=== PATIENT | male | born 1930 | race Caucasian/White ===

== ENCOUNTER 2019-05-20 01:57 | Inpatient (IN) | payer MEDICARE ==
[2019-05-20] MEDS ORDERED: Acetaminophen 650 MG Suppository ONE (02:12)
[2019-05-20 02:26] LABS: Actual Bicarbonate (HCO3a) 19.5 mEq/L (22-28); Analyzer IN Cardio ER; Base Excess (BEa) -3.3 mEq/L (-2.0 to +3.0); CO2 Tension 29.5 mmHg (35.0-45.0); Carboxyhemoglobin (COHb) 0.9 gm% (0.0-3.0); Hemoglobin (Hb) 14.8 g/dL (14.0-18.0); O2 Tension (PaO2) 79.3 mmHg (> 60.0); Potassium - ABG Lab 3.89 mmol/L (3.70-5.30); pH, Arterial 7.44 (7.35-7.45)
[2019-05-20] MEDS ORDERED: Furosemide 20 MG/2 ML VIAL ONE (02:34)
[2019-05-20] MEDS ORDERED: Piperacillin/Tazobactam 4.5 GM VIAL ONE (02:34)
[2019-05-20 02:43] LABS: ALT (SGPT) 16 U/L (8-55); AST (SGOT) 21 U/L (5-34); Albumin 4.8 g/dL (3.4-4.8); Alkaline Phosphatase 92 U/L (40-110); Anion Gap 17 mmol/L (10-20); BUN (Urea Nitrogen) 15 mg/dL (8.4-25.7); Bilirubin, Total 1.2 mg/dL (0.2-1.2); Calc. Creatinine Clearance 0 mL/min (70-130); Calcium 10.2 mg/dL (7.8-10.44); Carbon Dioxide 23 mmol/L (23-31); Chloride 100 mmol/L (98-107); Estimated GFR-MDRD 53; Globulin 2.8 g/dL (2.4-3.5); Glucose 273 mg/dL (83-110); Potassium 4.1 mmol/L (3.5-5.1); Protein, Total 7.6 g/dL (5.8-8.1); Sodium 136 mmol/L (136-145)
[2019-05-20 02:44] LABS: ALV-art Gradient 133.375 (0-20); Puncture Site L RADIAL
[2019-05-20 02:50] LABS: Band 12 % (5-11); Hemoglobin 14.3 g/dL (14.0-18.0); Lymphocytes 20 % (21-51); MDiff Complete? YES; Mean Corpuscular HGB CONC 33.2 g/dL (32.0-36.0); Mean Corpuscular Hemoglobin 30.2 pg (27.0-31.0); Mean Corpuscular Volume 91.1 fL (78.0-98.0); Mean Platelet Volume 8.8 fL (7.4-10.4); Monocytes 17 % (0-10); Neutrophil 51 % (42-75); Platelet Count 90 thou/uL (130-400); Platelet Morphology Comment Appears Decreased; Red Blood Cell (RBC) Count 4.73 mill/uL (4.70-6.10); White Blood Cell (WBC) Count 12.4 thou/uL (4.8-10.8)
[2019-05-20 03:38] LABS: Bacteria/HPF None Seen HPF (None Seen); Bilirubin Negative (Negative); Blood, Urine 1+ (Negative); Clarity Clear (Clear); Glucose, Urine (Dipstick) Greater than 1000 mg/dL (Negative); Leukocyte Negative Leu/uL (Negative); Nitrite Negative (Negative); Protein, Urine (Dipstick) 10 mg/dL (Neg-Trace); RBC/HPF 0-3 HPF (0-3); Squamous Epithelial 0-3 HPF (0-3); Urobilinogen Normal mg/dL (Less than 2); WBC/HPF 0-3 HPF (0-3)
[2019-05-20] MEDS ORDERED: Ondansetron ODT 4 MG TAB PO PRN (06:13)
[2019-05-20] MEDS ORDERED: Ondansetron PF 4 MG/2 ML Vial IVP PRN (06:13)
[2019-05-20] MEDS ORDERED: Acetaminophen 650 MG Suppository PR PRN ×2 (06:14→06:41)
[2019-05-20] MEDS ORDERED: Lactated Ringer's 1,000 ML IV SCH (06:15)
[2019-05-20 06:16] LABS: Lactic Acid 3.6 mmol/L (0.5-2.2)
[2019-05-20] MEDS ORDERED: Dextrose 50% Abboject 50 ML SYRINGE SLOW IVP PRN (06:36)
[2019-05-20] MEDS ORDERED: Dextrose 5% in Water 1,000 ML IV PRN (06:36)
[2019-05-20] MEDS ORDERED: SYSTANE 3.5 GM TUBE EA EYE PRN (06:39)
[2019-05-20] MEDS ORDERED: Acetaminophen 325 MG TAB PO PRN (06:41)
[2019-05-20 06:45] VITALS: BMI 31.4
[2019-05-20] MEDS ORDERED: Vancomycin HCl 1 GM in Premix Bag 1 BAG IVPB SCH (06:45)
--- NOTE | 2019-05-20 07:19 | HP ---
PRIMARY CARE PHYSICIAN: Makenna Sylvester. CHIEF COMPLAINT: Cough and fever of one day duration. HISTORY OF PRESENT ILLNESS: The patient is an 88-year-old male with Parkinson disease, diabetes mellitus type 2, hypertension and dementia, currently residing at [facility], presented to the emergency room by EMS with above complaints. The patient is currently on noninvasive positive-pressure ventilation. History is obtained from the spouse at the bedside. Over the last 24 to 48 hours, the patient has progressively worsening cough. He also had fever. He appeared lethargic, for which EMS was called. He was evaluated by home health care nurse yesterday. His lung examination was clear per home health nurse. The cough was productive of thick whitish phlegm. He also had respiratory distress on [id number] exertion. When EMS arrived, the patient was in significant distress requiring noninvasive positive pressure ventilation. His temperature by EMS was 103. In the emergency room, initial temperature was 103 rectal with respirations of 24, pulse rate of 112, with a blood pressure of 109/66, with O2 saturation of 96% on noninvasive positive-pressure ventilation. PAST MEDICAL HISTORY: 1. Parkinson disease. 2. Chronic thrombocytopenia followed by Hematology at [facility]. 3. Diabetes mellitus, type 2. 4. Dementia. 5. Hypertension. 6. Hyperlipidemia. 7. GERD. 8. History of skin cancer, status post excision. 9. Benign essential tremors. 10. Degenerative joint disease. PAST SURGICAL HISTORY: 1. Appendectomy. 2. Cataract extraction. 3. Colonoscopy. 4. Coronary stent placement by Dr. Tomlinson in 2016. 5. Foot surgery. 6. Hernia repair. 7. Knee arthroscopy. 8. Skin biopsy. 9. Skin cancer excision. 10. Thoracic laminectomy. 11. EGD. 12. Tonsillectomy. ALLERGIES: THE PATIENT IS ALLERGIC TO CEPHALEXIN, CODEINE, AND SULFA. ALL THESE 3 MEDICINES CAUSES NAUSEA. SOCIAL HISTORY: The patient currently resides at [facility]. There is no history of smoking, alcohol or drug use. The spouse is the decision maker. FAMILY HISTORY: Father with colon cancer. REVIEW OF SYSTEMS: Cannot be obtained from the patient due to current cognitive status. HOME MEDICATIONS: 1. Amlodipine 5 mg daily. 2. Azelastine nasal spray twice daily. 3. Brilinta 90 mg twice a day. 4. Carbidopa and levodopa 25/100 three times a day. 5. Aricept 10 mg q.p.m. 6. Enalapril 5 mg daily. 7. Nexium 40 mg daily. 8. Glimepiride 4 mg daily. 9. Levemir 48 units daily. 10. Lyrica 75 mg twice a day. 11. Namenda 5 mg daily. 12. Metformin 1000 mg daily. 13. Mirabegron one tablet daily. 14. Nystatin cream as needed. 15. Pioglitazone 30 mg daily. 16. Pravastatin 40 mg at bedtime. 17. Requip 0.25 mg 3 times a day. 18. Systane eye drops as directed. 19. Vascepa 2 g twice a day. 20. Multivitamin one tablet daily. PHYSICAL EXAMINATION: VITAL SIGNS: As discussed above. GENERAL: 88-year-old male, in respiratory distress on noninvasive positive-pressure ventilation. HEENT: Head, atraumatic and normocephalic. Sclerae anicteric. NECK: Supple. No JVD. No carotid bruit. LUNGS: Diffuse rhonchi with bibasilar rales. No significant wheezing. There is accessory muscle use. HEART: S1 and S2 present, tachycardic. No rubs or gallops. ABDOMEN: Soft and obese. Bowel sounds present. EXTREMITIES: 1 to 2+ edema in bilateral lower extremities. Peripheral vascular radial pulses palpable bilaterally. SKIN: Warm and dry. LYMPH NODES: No palpable lymph nodes in the neck. MUSCULOSKELETAL: No joint swelling or tenderness. LABORATORY FINDINGS: WBC 12.4 with 12% bandemia. Platelet of 90. ABG showed pH of 7.44 with pCO2 of 29.5, pO2 of 79.3, and bicarbonate 19.5. Chemistry showed sodium of 136, potassium of 4.1, chloride of 100, bicarb of 23, BUN of 15, and creatinine of 1.29. Lactic acid of 3.5. Troponin was negative. BNP 45. Urinalysis was negative for wbc or bacteria. Influenza screen was negative. Chest x-ray by my review showed increased bronchopulmonary markings in left base. EKG by my review showed sinus tachycardia without significant ST-T wave changes. IMPRESSION: 1. Acute hypoxic respiratory failure. 2. Severe sepsis secondary to pneumonia, suspected pneumococcal. Rule out aspiration. 3. Lactic acidosis secondary to sepsis. 4. Diabetes mellitus, type 2. 5. Chronic kidney disease, stage 3. 6. Chronic thrombocytopenia. 7. Parkinson disease. 8. Dementia. 9. Coronary artery disease, status post stent placement. 10. Gastroesophageal reflux disease. 11. Hypertension. 12. Hyperlipidemia. 13. Benign essential tremors. 14. Suspected sleep apnea. PLAN: The patient will be monitored in the intermediate care unit. We will continue noninvasive positive-pressure ventilation. We will continue vancomycin and Zosyn for now. We will consult Pulmonary, Dr. Santiago. We will check baseline cortisol level. Code status will be verified with the family. We will recheck chest x-ray in a.m. Echocardiogram will be obtained. Plan of care was discussed with the patient's spouse and the son at the bedside. They stated understanding. Job ID: [id number]
--- NOTE | 2019-05-20 07:50 | RAD ---
EXAM: Single view of the chest HISTORY: Difficulty breathing COMPARISON: None FINDINGS: Single view of the chest shows a normal sized cardiomediastinal silhouette. There is no lance dence of consolidation, mass, or pleural effusion. Degenerative changes are seen in the spine and shoulders. IMPRESSION: No evidence of acute cardiopulmonary disease
[2019-05-20] MEDS ORDERED: Vancomycin HCl 500 MG in Sodium Chloride 0.9% 100 ML IVPB SCH (08:00)
[2019-05-20] MEDS: Azithromycin 500 MG in Sodium Chloride 0.9% 250 ML 250 ML IVPB SCH (10:03)
[2019-05-20] MEDS: Piperacillin/Tazobactam 3.375 GM in Sodium Chloride 0.9% 100 ML IVPB SCH ×3 (10:03→20:46)
[2019-05-20] MEDS: Famotidine/PF 20 mg/2ml Vial SLOW IVP SCH ×2 (10:03→20:46)
[2019-05-20] MEDS: Saccharomyces boulardii 250 MG CAP PO SCH (10:04)
[2019-05-20] MEDS: TICAGRELOR 90 MG TABLET PO SCH ×2 (10:04→20:48)
[2019-05-20] MEDS: Senokot S 8.6-50 MG TAB PO SCH ×2 (10:04→20:48)
--- NOTE | 2019-05-20 11:59 | PDOC.HOSPP ---
- Subjective Encounter Date: 05/20/19 Encounter Time: 10:45 Subjective: pt's bedside, pt was on bipap this morning, he has dry cough, he is wheelchair bound, code status DNR confirmed - Objective Vital Signs & Weight: Vital Signs (12 hours) Temp Pulse Resp Pulse Ox 05/20/19 11:07 97.7 F 05/20/19 10:24 86 24 H 100 05/20/19 09:25 100 05/20/19 07:28 97.8 F 05/20/19 05:50 98.4 F Weight Weight 225 lb 1 oz Most Recent Monitor Data Heart Rate from ECG 82 NIBP 114/64 NIBP BP-Mean 80 Respiration from ECG 21 SpO2 98 Result Diagrams: 05/20/19 02:09 05/20/19 02:09 Additional Labs: Accuchecks 05/20/19 09:04 POC Glucose 280 H Radiology Reviewed by me: Yes (chest xray reviewed) EKG Reviewed by me: Yes (nsr) Hospitalist ROS - Review of Systems ROS unobtainable: due to mental status - Medication Medications: Active Medications Generic Name Dose Route Start Last Admin Trade Name Freq PRN Reason Stop Dose Admin Albuterol/Ipratropium 3 ml 05/20/19 10:30 05/20/19 10:24 Duoneb NEB 3 ml [id number] ARTURO Administration Famotidine 20 mg 05/20/19 09:00 05/20/19 10:03 Pepcid SLOW IVP 20 mg Q12HR ARTURO Administration Azithromycin 500 mg/ Sodium 250 mls @ 250 mls/hr 05/20/19 08:00 05/20/19 10: 03 Chloride IVPB 250 mls Q24HR ARTURO Administration Piperacillin Sod/Tazobactam 100 mls @ 200 mls/hr 05/20/19 09:00 05/20/19 10: 03 Sod 3.375 gm/ Sodium Chloride IVPB 100 mls Q6H ARTURO Administration Saccharomyces Boulardii 250 mg 05/20/19 09:00 05/20/19 10:04 Florastor PO 250 mg DAILY ARTURO Administration Senna/Docusate Sodium 1 tab 05/20/19 09:00 05/20/19 10:04 Senokot S PO 1 tab BID ARTURO Administration Sodium Chloride 10 ml 05/20/19 09:00 05/20/19 10:04 Flush - Normal Saline IVF 10 ml Q12HR ARTURO Administration Ticagrelor 90 mg 05/20/19 09:00 05/20/19 10:04 Brilinta PO 90 mg BID ARTURO Administration - Exam General Appearance: NAD, ill appearing Eye: PERRL, anicteric sclera ENT: normocephalic atraumatic, no oropharyngeal lesions Neck: supple, symmetric, no JVD, no thyromegaly Heart: RRR, no murmur, no gallops, no rubs, normal peripheral pulses Respiratory: no wheezes, no rales, no ronchi Gastrointestinal: soft, non-tender, non-distended, normal bowel sounds Extremities: no cyanosis, no clubbing, no edema Skin: normal turgor, no lesions Neurological: no focal deficits Musculoskeletal: normal tone, normal strength Psychiatric: lethargic Hosp A/P (1) Pneumonia Code(s): J18.9 - PNEUMONIA, UNSPECIFIED ORGANISM Status: Acute Qualifiers: Pneumonia type: aspiration pneumonia Laterality: unspecified laterality Lung location: unspecified part of lung (2) Sepsis with acute hypoxic respiratory failure Code(s): A41.9 - SEPSIS, UNSPECIFIED ORGANISM; R65.20 - SEVERE SEPSIS WITHOUT SEPTIC SHOCK; J96.01 - ACUTE RESPIRATORY FAILURE WITH HYPOXIA Status: Acute Qualifiers: Sepsis type: sepsis due to unspecified organism Severe sepsis shock status : without septic shock Qualified Code(s): A41.9 - Sepsis, unspecified organism ; R65.20 - Severe sepsis without septic shock; J96.01 - Acute respiratory failure with hypoxia (3) CAD (coronary artery disease) Code(s): I25.10 - ATHSCL HEART DISEASE OF [place] CORONARY ARTERY W/O ANG PCTRS Status: Chronic Qualifiers: Coronary Disease-Associated Artery/Lesion type: [place] artery [place] vs. transplanted heart: [place] heart Associated angina: without angina Qualified Code(s): I25.10 - Atherosclerotic heart disease of [place] coronary artery without angina pectoris (4) Hypertension Code(s): I10 - ESSENTIAL (PRIMARY) HYPERTENSION Status: Chronic Qualifiers: Hypertension type: essential hypertension Qualified Code(s): I10 - Essential (primary) hypertension (5) Dyslipidemia Code(s): E78.5 - HYPERLIPIDEMIA, UNSPECIFIED Status: Chronic (6) Thrombocytopenia Code(s): D69.6 - THROMBOCYTOPENIA, UNSPECIFIED Status: Chronic (7) GERD (gastroesophageal reflux disease) Code(s): K21.9 - GASTRO-ESOPHAGEAL REFLUX DISEASE WITHOUT ESOPHAGITIS Status: Chronic Qualifiers: Esophagitis presence: without esophagitis Qualified Code(s): K21.9 - Gastro -esophageal reflux disease without esophagitis (8) Dementia Code(s): F03.90 - UNSPECIFIED DEMENTIA WITHOUT BEHAVIORAL DISTURBANCE Status: Chronic Qualifiers: Dementia type: Parkinson's disease Dementia behavioral disturbance: without behavioral disturbance Qualified Code(s): G20 - Parkinson's disease; F02.80 - Dementia in other diseases classified elsewhere without behavioral disturbance (9) Physical deconditioning Code(s): R53.81 - OTHER MALAISE Status: Chronic (10) Lactic acidosis Code(s): E87.2 - ACIDOSIS Status: Resolved (11) Diabetes type 2, controlled Code(s): E11.9 - TYPE 2 DIABETES MELLITUS WITHOUT COMPLICATIONS Status: Chronic Qualifiers: Diabetes mellitus moth exterminator insulin use: with moth exterminator use Chronic kidney disease stage: stage 3 (moderate) (12) CKD (chronic kidney disease) stage 3, GFR 30-59 ml/min Code(s): N18.3 - CHRONIC KIDNEY DISEASE, STAGE 3 (MODERATE) Status: Chronic (13) Essential tremor Code(s): G25.0 - ESSENTIAL TREMOR Status: Chronic (14) Obesity (BMI 30.0-34.9) Code(s): E66.9 - OBESITY, UNSPECIFIED Status: Chronic (15) Parkinson disease Code(s): G20 - PARKINSON'S DISEASE Status: Chronic - Plan old records reviewed/req, plan discussed w/ family, continue antibiotics, respiratory therapy 05/20/19 will try to wean off bipap to see how he does continue vancomycin and zosyn and azithromycin follow culture medication reviewed as above symptomatic treatment home medication reconciled discussed with
[2019-05-20] MEDS ORDERED: Nystatin Cream 30 GM TUBE TOP PRN (12:00)
[2019-05-20] MEDS ORDERED: Polyethylene Glycol OPTH DROP 15 ML BOT EA EYE PRN (12:43)
[2019-05-20] MEDS: Carbidopa/Levodopa 25-100 mg Tablet PO SCH ×2 (16:25→20:46)
[2019-05-20] MEDS: rOPINIRole HCl 0.25 MG TAB PO SCH ×2 (16:25→20:48)
[2019-05-20] MEDS: Atorvastatin Calcium 10 MG TAB PO SCH (20:45)
[2019-05-20] MEDS: Azelastine 137 MCG/Spray 30 ML NS SCH (20:45)
[2019-05-20] MEDS: Donepezil HCl 5 MG TAB PO SCH (20:46)
[2019-05-20] MEDS: Pregabalin 75 MG CAP PO SCH (20:47)
[2019-05-20] MEDS: Insulin Regular 300 UNITS/3 ML VIAL SC PRN (21:46)
[2019-05-21] MEDS: Insulin Regular 300 UNITS/3 ML VIAL SC PRN ×4 (00:18→21:28)
--- NOTE | 2019-05-21 02:45 | CON ---
DATE OF CONSULTATION: 05/20/2019 HISTORY OF PRESENT ILLNESS: Mr. Knight is an 88-year-old male, with advanced Parkinson's and dementia. He presented with respiratory distress. I was consulted because of his presence in the intermediate care unit. PAST MEDICAL HISTORY: Remarkable for diabetes, hypertension, history of swallowing dysfunction. He has gone through speech pathology in the past, but his family says that he just got tired of doing the speech and swallowing exercises. He spends majority of his time in bed or reclining chair. He is febrile on admission. PAST MEDICAL HISTORY: Otherwise remarkable for thrombocytopenia, lipid disorder , reflux disease, skin cancer, appendectomy, cataract surgery, coronary stenting, foot surgery, herniorrhaphy, skin cancer excision, laminectomy, EGD and tonsillectomy. ALLERGIES: HE IS REPORTEDLY ALLERGIC TO CEPHALOSPORINS, CODEINE AND SULFA, MAINLY IT IS NAUSEA. SOCIAL HISTORY: He lives at [facility]. His lives in an assisted living in [facility]. FAMILY HISTORY: Not obtained. REVIEW OF SYSTEMS: 10 point review of system completed, not obtainable. MEDICATIONS: Twenty, these have been reviewed. PHYSICAL EXAMINATION: GENERAL: He is in no distress. VITAL SIGNS: Heart rate is in 80s, respiratory rate is 20, oximetry is 98% on 2 L, blood pressure is 111/63. HEAD AND NECK: He keeps his eyes closed. He will not cooperate with an exam. He has no cervical lymphadenopathy. LUNGS: Remarkable for diffuse rhonchi. HEART: Regular rhythm. S1, S2 are normal. ABDOMEN: Soft and nontender. EXTREMITIES: Without clubbing, cyanosis, or edema. NEUROLOGIC: Could not be tested. IMPRESSION: 1. Advanced dementia with Parkinson's disease. Swallowing dysfunction with retained secretions accounting for his admission. He has no obvious alveolar infiltrates on his chest radiograph. 2. I think he could be transferred out of the intermediate Care Unit for supportive care and back to the alf. I have discussed palliative care with his and his daughter in-law. I also discussed the option of not coming back to the hospital and just managing him conservatively at the alf in the future. TIME SPENT: This is a 70 minute consult, with greater than 50% of the time was spent on the unit coordinating care. Job ID: [id number] MTDD
[2019-05-21] MEDS: Piperacillin/Tazobactam 3.375 GM in Sodium Chloride 0.9% 100 ML IVPB SCH ×4 (03:29→21:06)
[2019-05-21 04:57] LABS: ALT (SGPT) 8 U/L (8-55); AST (SGOT) 16 U/L (5-34); Albumin 3.7 g/dL (3.4-4.8); Alkaline Phosphatase 55 U/L (40-110); Anion Gap 14 mmol/L (10-20); BUN (Urea Nitrogen) 15 mg/dL (8.4-25.7); Bilirubin, Total 0.9 mg/dL (0.2-1.2); Calc. Creatinine Clearance 61 mL/min (70-130); Calcium 8.8 mg/dL (7.8-10.44); Carbon Dioxide 21 mmol/L (23-31); Chloride 103 mmol/L (98-107); Estimated GFR-MDRD 56; Globulin 2.2 g/dL (2.4-3.5); Glucose 265 mg/dL (83-110); Magnesium 1.4 mg/dL (1.6-2.6); Potassium 3.3 mmol/L (3.5-5.1); Protein, Total 5.9 g/dL (5.8-8.1); Sodium 135 mmol/L (136-145)
[2019-05-21 05:24] LABS: Band 8 % (5-11); Hemoglobin 11.8 g/dL (14.0-18.0); Lymphocytes 13 % (21-51); MDiff Complete? YES; Mean Corpuscular HGB CONC 34.2 g/dL (32.0-36.0); Mean Corpuscular Hemoglobin 32.1 pg (27.0-31.0); Mean Corpuscular Volume 94.1 fL (78.0-98.0); Mean Platelet Volume 8.7 fL (7.4-10.4); Monocytes 20 % (0-10); Neutrophil 59 % (42-75); Platelet Count 73 thou/uL (130-400); Platelet Morphology Comment Appears Decreased; RBC Distribution Width 14.3 % (11.5-14.5); Red Blood Cell (RBC) Count 3.67 mill/uL (4.70-6.10); White Blood Cell (WBC) Count 9.5 thou/uL (4.8-10.8)
[2019-05-21] MEDS ORDERED: Vancomycin HCl 1.5 GM in Sodium Chloride 0.9% 250 ML 300 ML IVPB SCH (08:00)
--- NOTE | 2019-05-21 08:38 | RAD ---
Portable frontal chest radiograph: 05/21/2019 COMPARISON: 05/20/2019 HISTORY: Shortness of breath FINDINGS: Mild increased density noted in the medial left lung base. This may represent volume loss o r mild infiltrate. Right lung is clear. No pneumothorax seen. IMPRESSION: Mild nonspecific increased density in the medial left lung base. This may signify volume loss. Follow-up PA and lateral imaging of the chest suggested.
[2019-05-21] MEDS ORDERED: Furosemide 40 MG/4 ML VIAL SLOW IVP SCH (09:15)
[2019-05-21] MEDS: TICAGRELOR 90 MG TABLET PO SCH ×3 (09:42→21:45)
[2019-05-21] MEDS: rOPINIRole HCl 0.25 MG TAB PO SCH ×3 (09:42→21:03)
[2019-05-21] MEDS: Pioglitazone HCl 15 MG TAB PO SCH (09:42)
[2019-05-21] MEDS: Famotidine/PF 20 mg/2ml Vial SLOW IVP SCH ×2 (09:42→21:07)
[2019-05-21] MEDS: Pregabalin 75 MG CAP PO SCH ×2 (09:43→21:03)
[2019-05-21] MEDS: Senokot S 8.6-50 MG TAB PO SCH ×2 (09:43→21:05)
[2019-05-21] MEDS: metFORMIN 500 MG TAB PO SCH (09:43)
[2019-05-21] MEDS: Lisinopril 5 MG TAB PO SCH (09:43)
[2019-05-21] MEDS: Amlodipine 5 MG TAB PO SCH (09:43)
[2019-05-21] MEDS: Multivitamin W/ Minerals 1 TAB PO SCH (09:43)
[2019-05-21] MEDS: Carbidopa/Levodopa 25-100 mg Tablet PO SCH ×3 (09:43→22:40)
[2019-05-21] MEDS: Saccharomyces boulardii 250 MG CAP PO SCH (09:43)
[2019-05-21] MEDS: Azelastine 137 MCG/Spray 30 ML NS SCH ×2 (09:45→22:41)
[2019-05-21] MEDS: Azithromycin 500 MG in Sodium Chloride 0.9% 250 ML 250 ML IVPB SCH (09:48)
--- NOTE | 2019-05-21 10:13 | PDOC.HOSPP ---
- Subjective Encounter Date: 05/21/19 Encounter Time: 09:45 Subjective: Patient seen and examined. No new complaints. No overnight events he is on room air family is worried about leg edema - Objective Vital Signs & Weight: Vital Signs (12 hours) Temp Pulse Resp Pulse Ox 05/21/19 09:43 88 05/21/19 07:23 98.5 F 05/21/19 07:15 88 20 98 05/21/19 03:38 98.1 F 05/21/19 02:33 88 20 98 05/20/19 23:22 98.3 F Weight Weight 226 lb 6 oz Most Recent Monitor Data Heart Rate from ECG 90 NIBP 137/70 NIBP BP-Mean 92 Respiration from ECG 9 SpO2 98 I&O: 05/20/19 05/21/19 05/22/19 06:59 06:59 06:59 Intake Total 300 Balance 300 Result Diagrams: 05/21/19 04:04 05/21/19 04:04 Additional Labs: Accuchecks 05/21/19 05/21/19 05/20/19 08:02 04:48 23:36 POC Glucose 242 H 273 H 266 H 05/20/19 05/20/19 05/20/19 19:52 16:31 12:32 POC Glucose 248 H 243 H 251 H Radiology Reviewed by me: Yes (chest xray reviewed) EKG Reviewed by me: Yes (nsr) Hospitalist ROS - Review of Systems ROS unobtainable: due to mental status - Medication Medications: Active Medications Generic Name Dose Route Start Last Admin Trade Name Freq PRN Reason Stop Dose Admin Albuterol/Ipratropium 3 ml 05/20/19 10:30 05/21/19 07:15 Duoneb NEB 3 ml [id number] ARTURO Administration Amlodipine Besylate 5 mg 05/21/19 09:00 05/21/19 09:43 Norvasc PO 5 mg DAILY ARTURO Administration Atorvastatin Calcium 10 mg 05/20/19 21:00 05/20/19 20:45 Lipitor PO 10 mg HS ARTURO Administration Azelastine HCl 0 ml 05/20/19 21:00 05/21/19 09:45 Azelastine NS 1 spray BID ARTURO Administration Carbidopa/Levodopa 1 tab 05/20/19 15:00 05/21/19 09:43 Sinemet 25-100 PO 1 tab TID ARTURO Administration Donepezil HCl 5 mg 05/20/19 21:00 05/20/19 20:46 Aricept PO 5 mg HS ARTURO Administration Famotidine 20 mg 05/20/19 09:00 05/21/19 09:42 Pepcid SLOW IVP 20 mg Q12HR ARTURO Administration Furosemide 40 mg 05/21/19 09:15 05/21/19 09:41 Lasix SLOW IVP 05/21/19 11:00 40 mg 0915 ARTURO Administration Azithromycin 500 mg/ Sodium 250 mls @ 250 mls/hr 05/20/19 08:00 05/21/19 09: 48 Chloride IVPB 250 mls Q24HR ARTURO Administration Piperacillin Sod/Tazobactam 100 mls @ 200 mls/hr 05/20/19 09:00 05/21/19 09: 48 Sod 3.375 gm/ Sodium Chloride IVPB 100 mls Q6H ARTURO Administration Vancomycin HCl 1.5 gm/ Sodium 300 mls @ 200 mls/hr 05/21/19 08:00 05/21/19 09 :44 Chloride IVPB 300 mls 0800 ARTURO Administration Insulin Human Regular 0 units 05/20/19 06:36 05/21/19 05:19 Humulin R SC 6 units .MODERATE SLIDING SC PRN Administration Moderate Correctional Scale Insulin Human Regular 0 units 05/20/19 21:36 05/21/19 00:18 Humulin R SC 3 units .BEDTIME SLIDING SC PRN Administration BEDTIME SLIDING SCALE Protocol Iron/Minerals/Multivitamins 1 tab 05/21/19 09:00 05/21/19 09:43 Theragran M PO 1 tab DAILY ARTURO Administration Lisinopril 5 mg 05/21/19 09:00 05/21/19 09:43 Zestril PO 5 mg DAILY ARTURO Administration Memantine 5 mg 05/20/19 21:00 05/20/19 20:46 Namenda PO 5 mg HS ARTURO Administration Metformin HCl 1,000 mg 05/21/19 08:00 05/21/19 09:43 Glucophage PO 1,000 mg QAM-WM ARTURO Administration Mirabegron 50 mg 05/21/19 09:00 05/21/19 09:42 Myrbetriq Er PO 50 mg DAILY ARTURO Administration Pioglitazone HCl 30 mg 05/21/19 09:00 05/21/19 09:42 Actos PO 30 mg DAILY ARTURO Administration Pregabalin 75 mg 05/20/19 21:00 05/21/19 09:43 Lyrica PO 75 mg BID ARTURO Administration Ropinirole HCl 0.25 mg 05/20/19 15:00 05/21/19 09:42 Requip PO 0.25 mg TID ARTURO Administration Saccharomyces Boulardii 250 mg 05/20/19 09:00 05/21/19 09:43 Florastor PO 250 mg DAILY ARTURO Administration Senna/Docusate Sodium 1 tab 05/20/19 09:00 05/21/19 09:43 Senokot S PO 1 tab BID ARTURO Administration Sodium Chloride 10 ml 05/20/19 09:00 05/21/19 09:48 Flush - Normal Saline IVF 10 ml Q12HR ARTURO Administration Ticagrelor 90 mg 05/20/19 09:00 05/21/19 09:42 Brilinta PO 90 mg BID ARTURO Administration - Exam General Appearance: NAD Eye: PERRL, anicteric sclera ENT: normocephalic atraumatic, no oropharyngeal lesions, dry oral mucosa Neck: supple, symmetric, no JVD Heart: RRR, no murmur, no gallops, no rubs Respiratory: CTAB, no wheezes, no rales, no ronchi Gastrointestinal: soft, non-tender, non-distended, normal bowel sounds Extremities: no cyanosis, 1+ LE edema Skin: normal turgor, no lesions Neurological: no focal deficits Musculoskeletal: normal tone Psychiatric: not oriented Hosp A/P (1) Pneumonia Code(s): J18.9 - PNEUMONIA, UNSPECIFIED ORGANISM Status: Acute Qualifiers: Pneumonia type: aspiration pneumonia Laterality: unspecified laterality Lung location: unspecified part of lung (2) Sepsis with acute hypoxic respiratory failure Code(s): A41.9 - SEPSIS, UNSPECIFIED ORGANISM; R65.20 - SEVERE SEPSIS WITHOUT SEPTIC SHOCK; J96.01 - ACUTE RESPIRATORY FAILURE WITH HYPOXIA Status: Resolved Qualifiers: Sepsis type: sepsis due to unspecified organism Severe sepsis shock status : without septic shock Qualified Code(s): A41.9 - Sepsis, unspecified organism ; R65.20 - Severe sepsis without septic shock; J96.01 - Acute respiratory failure with hypoxia (3) CAD (coronary artery disease) Code(s): I25.10 - ATHSCL HEART DISEASE OF [place] CORONARY ARTERY W/O ANG PCTRS Status: Chronic Qualifiers: Coronary Disease-Associated Artery/Lesion type: [place] artery [place] vs. transplanted heart: [place] heart Associated angina: without angina Qualified Code(s): I25.10 - Atherosclerotic heart disease of [place] coronary artery without angina pectoris (4) Hypertension Code(s): I10 - ESSENTIAL (PRIMARY) HYPERTENSION Status: Chronic Qualifiers: Hypertension type: essential hypertension Qualified Code(s): I10 - Essential (primary) hypertension (5) Dyslipidemia Code(s): E78.5 - HYPERLIPIDEMIA, UNSPECIFIED Status: Chronic (6) Thrombocytopenia Code(s): D69.6 - THROMBOCYTOPENIA, UNSPECIFIED Status: Chronic (7) GERD (gastroesophageal reflux disease) Code(s): K21.9 - GASTRO-ESOPHAGEAL REFLUX DISEASE WITHOUT ESOPHAGITIS Status: Chronic Qualifiers: Esophagitis presence: without esophagitis Qualified Code(s): K21.9 - Gastro -esophageal reflux disease without esophagitis (8) Dementia Code(s): F03.90 - UNSPECIFIED DEMENTIA WITHOUT BEHAVIORAL DISTURBANCE Status: Chronic Qualifiers: Dementia type: Parkinson's disease Dementia behavioral disturbance: without behavioral disturbance Qualified Code(s): G20 - Parkinson's disease; F02.80 - Dementia in other diseases classified elsewhere without behavioral disturbance (9) Physical deconditioning Code(s): R53.81 - OTHER MALAISE Status: Chronic (10) Lactic acidosis Code(s): E87.2 - ACIDOSIS Status: Resolved (11) Diabetes type 2, controlled Code(s): E11.9 - TYPE 2 DIABETES MELLITUS WITHOUT COMPLICATIONS Status: Chronic Qualifiers: Diabetes mellitus exterminator termite insulin use: with exterminator termite use Chronic kidney disease stage: stage 3 (moderate) (12) CKD (chronic kidney disease) stage 3, GFR 30-59 ml/min Code(s): N18.3 - CHRONIC KIDNEY DISEASE, STAGE 3 (MODERATE) Status: Chronic (13) Essential tremor Code(s): G25.0 - ESSENTIAL TREMOR Status: Chronic (14) Obesity (BMI 30.0-34.9) Code(s): E66.9 - OBESITY, UNSPECIFIED Status: Chronic (15) Parkinson disease Code(s): G20 - PARKINSON'S DISEASE Status: Chronic - Plan old records reviewed/req, plan discussed w/ family, continue antibiotics, respiratory therapy 05/20/19 will try to wean off bipap to see how he does continue vancomycin and zosyn and azithromycin follow culture medication reviewed as above symptomatic treatment home medication reconciled discussed with 05/21/19 transfer to medical floor continue one day antibiotics give dose of lasix expecting discharge soon pulmonary recommendation appreciated discussed with and family
--- NOTE | 2019-05-21 20:56 | PRG ---
DATE OF SERVICE: 05/21/2019 SUBJECTIVE: Mr. Knight has made 100% improvement compared to yesterday. He was sitting up, being fed when I saw him this morning. OBJECTIVE: VITAL SIGNS: He is afebrile, heart rate is 92, respiratory rate 17, oximetry is 95% to 99%, blood pressure 137/72. LUNGS: Clear. HEART: Regular rhythm. ABDOMEN: Soft. LABORATORY DATA: White count 9.5, hemoglobin 11.8, platelets 73,000. Sodium 135, potassium 3.3, chloride 103, bicarb 21, BUN 51, creatinine 1.23. IMPRESSION: 1. Respiratory failure secondary to advanced parkinsonism with retained secretions and likely aspiration. Today's chest radiograph suggestive of atelectasis of the left base. 2. Stable to move out of the intermediate care unit. I will stop the azithromycin as this is likely to be an atypical organism infection. 3. His Zosyn could be switched to Augmentin tomorrow if he continues to consistently swallow food. 4. Vancomycin can be discontinued as well as this is unlikely to be a methicillin-resistant Staphylococcus aureus infection. Job ID: [id number]
[2019-05-21] MEDS: Atorvastatin Calcium 10 MG TAB PO SCH (21:05)
[2019-05-21] MEDS: Donepezil HCl 5 MG TAB PO SCH (21:05)
[2019-05-22] MEDS: Piperacillin/Tazobactam 3.375 GM in Sodium Chloride 0.9% 100 ML IVPB SCH (03:26)
[2019-05-22] MEDS: Insulin Regular 300 UNITS/3 ML VIAL SC PRN ×3 (03:35→17:20)
[2019-05-22 06:49] LABS: ALT (SGPT) 8 U/L (8-55); AST (SGOT) 17 U/L (5-34); Alkaline Phosphatase 60 U/L (40-110); Anion Gap 13 mmol/L (10-20); BUN (Urea Nitrogen) 16 mg/dL (8.4-25.7); Bilirubin, Total 0.8 mg/dL (0.2-1.2); Calc. Creatinine Clearance 56 mL/min (70-130); Calcium 9.1 mg/dL (7.8-10.44); Carbon Dioxide 25 mmol/L (23-31); Chloride 101 mmol/L (98-107); Estimated GFR-MDRD 50; Globulin 2.4 g/dL (2.4-3.5); Glucose 292 mg/dL (83-110); Potassium 3.2 mmol/L (3.5-5.1); Protein, Total 6.4 g/dL (5.8-8.1); Sodium 136 mmol/L (136-145)
[2019-05-22 07:24] LABS: Band 5 % (5-11); Hemoglobin 11.7 g/dL (14.0-18.0); Lymphocytes 30 % (21-51); MDiff Complete? YES; Mean Corpuscular Hemoglobin 31.4 pg (27.0-31.0); Mean Corpuscular Volume 92.2 fL (78.0-98.0); Mean Platelet Volume 8.8 fL (7.4-10.4); Monocytes 21 % (0-10); Neutrophil 44 % (42-75); Nucleated RBC 1 % (0); Platelet Count 77 thou/uL (130-400); Platelet Morphology Comment Appears Decreased; Polychromasia SLIGHT = 2-3 cells (100X) (0-2/hpf); RBC Distribution Width 13.8 % (11.5-14.5); Red Blood Cell (RBC) Count 3.74 mill/uL (4.70-6.10); White Blood Cell (WBC) Count 7.8 thou/uL (4.8-10.8)
[2019-05-22 07:28] LABS: Vancomycin, Trough 8.9 ug/mL
[2019-05-22] MEDS: metFORMIN 500 MG TAB PO SCH (09:38)
[2019-05-22] MEDS: Carbidopa/Levodopa 25-100 mg Tablet PO SCH ×3 (09:39→22:02)
[2019-05-22] MEDS: rOPINIRole HCl 0.25 MG TAB PO SCH ×3 (09:47→21:28)
[2019-05-22] MEDS: Lisinopril 5 MG TAB PO SCH (09:47)
[2019-05-22] MEDS: Senokot S 8.6-50 MG TAB PO SCH ×2 (09:47→21:23)
[2019-05-22] MEDS: Amlodipine 5 MG TAB PO SCH (09:47)
[2019-05-22] MEDS: Pregabalin 75 MG CAP PO SCH ×2 (09:48→21:23)
[2019-05-22] MEDS: Multivitamin W/ Minerals 1 TAB PO SCH (09:49)
[2019-05-22] MEDS: Saccharomyces boulardii 250 MG CAP PO SCH (09:49)
[2019-05-22] MEDS: Famotidine/PF 20 mg/2ml Vial SLOW IVP SCH ×2 (09:50→21:27)
[2019-05-22] MEDS: TICAGRELOR 90 MG TABLET PO SCH ×2 (09:51→21:45)
[2019-05-22] MEDS: Amoxicillin/Potassium Clav 875 MG TAB PO SCH ×2 (09:54→21:23)
[2019-05-22] MEDS: Azelastine 137 MCG/Spray 30 ML NS SCH ×2 (09:58→21:25)
[2019-05-22] MEDS: Pioglitazone HCl 15 MG TAB PO SCH (10:13)
--- NOTE | 2019-05-22 12:44 | PDOC.HOSPP ---
- Subjective Encounter Date: 05/22/19 Encounter Time: 10:00 Subjective: Patient seen and examined. No new complaints. No overnight events - Objective Vital Signs & Weight: Vital Signs (12 hours) Temp Pulse Resp BP BP Pulse Ox 05/22/19 12:00 98.6 F 89 20 146/84 H 94 L 05/22/19 10:38 81 18 93 L 05/22/19 09:47 89 138/75 05/22/19 08:00 98.4 F 89 20 138/75 92 L 05/22/19 07:27 86 16 98 05/22/19 05:00 98.4 F 89 18 131/81 96 05/22/19 03:01 88 20 94 L Weight Weight 226 lb 4 oz Most Recent Monitor Data Heart Rate from ECG 90 NIBP 143/71 NIBP BP-Mean 95 Respiration from ECG 9 SpO2 98 I&O: 05/21/19 05/22/19 05/23/19 06:59 06:59 06:59 Intake Total 300 Balance 300 Result Diagrams: 05/22/19 06:10 05/22/19 06:10 Additional Labs: Accuchecks 05/22/19 05/21/19 05/21/19 03:35 20:30 16:06 POC Glucose 282 H 317 H 337 H Hospitalist ROS - Review of Systems ROS unobtainable: due to mental status - Medication Medications: Active Medications Generic Name Dose Route Start Last Admin Trade Name Freq PRN Reason Stop Dose Admin Acetaminophen 650 mg 05/20/19 06:41 05/22/19 03:23 Tylenol PO 650 mg Q4H PRN Administration Headache/Fever/Mild Pain (1-3) Albuterol/Ipratropium 3 ml 05/20/19 10:30 05/22/19 10:38 Duoneb NEB 3 ml [id number] ARTURO Administration Amlodipine Besylate 5 mg 05/21/19 09:00 05/22/19 09:47 Norvasc PO 5 mg DAILY ARTURO Administration Amoxicillin/Clavulanate Potassium 875 mg 05/22/19 09:00 05/22/19 09:54 Augmentin PO 875 mg Q12HR ARTURO Administration Atorvastatin Calcium 10 mg 05/20/19 21:00 05/21/19 21:05 Lipitor PO 10 mg HS ARTURO Administration Azelastine HCl 0 ml 05/20/19 21:00 05/22/19 09:58 Azelastine NS 1 spray BID ARTURO Administration Carbidopa/Levodopa 1 tab 05/20/19 15:00 05/22/19 09:39 Sinemet 25-100 PO 1 tab TID ARTURO Administration Donepezil HCl 5 mg 05/20/19 21:00 05/21/19 21:05 Aricept PO 5 mg HS ARTURO Administration Famotidine 20 mg 05/20/19 09:00 05/22/19 09:50 Pepcid SLOW IVP 20 mg Q12HR ARTURO Administration Insulin Human Regular 0 units 05/20/19 06:36 05/22/19 12:36 Humulin R SC 8 units .MODERATE SLIDING SC PRN Administration Moderate Correctional Scale Insulin Human Regular 0 units 05/20/19 21:36 05/22/19 03:35 Humulin R SC 3 units .BEDTIME SLIDING SC PRN Administration BEDTIME SLIDING SCALE Protocol Iron/Minerals/Multivitamins 1 tab 05/21/19 09:00 05/22/19 09:49 Theragran M PO 1 tab DAILY ARTURO Administration Lisinopril 5 mg 05/21/19 09:00 05/22/19 09:47 Zestril PO 5 mg DAILY ARTURO Administration Memantine 5 mg 05/20/19 21:00 05/21/19 21:05 Namenda PO 5 mg HS ARTURO Administration Metformin HCl 1,000 mg 05/21/19 08:00 05/22/19 09:38 Glucophage PO 1,000 mg QAM-WM ARTURO Administration Mirabegron 50 mg 05/21/19 09:00 05/22/19 09:54 Myrbetriq Er PO 50 mg DAILY ARTURO Administration Pioglitazone HCl 30 mg 05/21/19 09:00 05/22/19 10:13 Actos PO 30 mg DAILY ARTURO Administration Pregabalin 75 mg 05/20/19 21:00 05/22/19 09:48 Lyrica PO 75 mg BID ARTURO Administration Ropinirole HCl 0.25 mg 05/20/19 15:00 05/22/19 09:47 Requip PO 0.25 mg TID ARTURO Administration Saccharomyces Boulardii 250 mg 05/20/19 09:00 05/22/19 09:49 Florastor PO 250 mg DAILY ARTURO Administration Senna/Docusate Sodium 1 tab 05/20/19 09:00 05/22/19 09:47 Senokot S PO 1 tab BID ARTURO Administration Sodium Chloride 10 ml 05/20/19 09:00 05/22/19 09:53 Flush - Normal Saline IVF 10 ml Q12HR ARTURO Administration Ticagrelor 90 mg 05/20/19 09:00 05/22/19 09:51 Brilinta PO 90 mg BID ARTURO Administration - Exam General Appearance: NAD, awake alert Eye: PERRL, anicteric sclera ENT: normocephalic atraumatic, no oropharyngeal lesions Neck: supple, symmetric, no JVD, no thyromegaly Heart: RRR, no murmur, no gallops, no rubs Respiratory: CTAB, no wheezes, no rales, no ronchi Gastrointestinal: soft, non-tender, non-distended Extremities: no cyanosis, no clubbing Skin: normal turgor, no lesions Neurological: no focal deficits Musculoskeletal: normal tone, normal strength Psychiatric: normal affect, normal behavior Hosp A/P (1) Pneumonia Code(s): J18.9 - PNEUMONIA, UNSPECIFIED ORGANISM Status: Acute Qualifiers: Pneumonia type: aspiration pneumonia Laterality: unspecified laterality Lung location: unspecified part of lung (2) Sepsis with acute hypoxic respiratory failure Code(s): A41.9 - SEPSIS, UNSPECIFIED ORGANISM; R65.20 - SEVERE SEPSIS WITHOUT SEPTIC SHOCK; J96.01 - ACUTE RESPIRATORY FAILURE WITH HYPOXIA Status: Resolved Qualifiers: Sepsis type: sepsis due to unspecified organism Severe sepsis shock status : without septic shock Qualified Code(s): A41.9 - Sepsis, unspecified organism ; R65.20 - Severe sepsis without septic shock; J96.01 - Acute respiratory failure with hypoxia (3) CAD (coronary artery disease) Code(s): I25.10 - ATHSCL HEART DISEASE OF [place] CORONARY ARTERY W/O ANG PCTRS Status: Chronic Qualifiers: Coronary Disease-Associated Artery/Lesion type: [place] artery [place] vs. transplanted heart: [place] heart Associated angina: without angina Qualified Code(s): I25.10 - Atherosclerotic heart disease of [place] coronary artery without angina pectoris (4) Hypertension Code(s): I10 - ESSENTIAL (PRIMARY) HYPERTENSION Status: Chronic Qualifiers: Hypertension type: essential hypertension Qualified Code(s): I10 - Essential (primary) hypertension (5) Dyslipidemia Code(s): E78.5 - HYPERLIPIDEMIA, UNSPECIFIED Status: Chronic (6) Thrombocytopenia Code(s): D69.6 - THROMBOCYTOPENIA, UNSPECIFIED Status: Chronic (7) GERD (gastroesophageal reflux disease) Code(s): K21.9 - GASTRO-ESOPHAGEAL REFLUX DISEASE WITHOUT ESOPHAGITIS Status: Chronic Qualifiers: Esophagitis presence: without esophagitis Qualified Code(s): K21.9 - Gastro -esophageal reflux disease without esophagitis (8) Dementia Code(s): F03.90 - UNSPECIFIED DEMENTIA WITHOUT BEHAVIORAL DISTURBANCE Status: Chronic Qualifiers: Dementia type: Parkinson's disease Dementia behavioral disturbance: without behavioral disturbance Qualified Code(s): G20 - Parkinson's disease; F02.80 - Dementia in other diseases classified elsewhere without behavioral disturbance (9) Physical deconditioning Code(s): R53.81 - OTHER MALAISE Status: Chronic (10) Lactic acidosis Code(s): E87.2 - ACIDOSIS Status: Resolved (11) Diabetes type 2, controlled Code(s): E11.9 - TYPE 2 DIABETES MELLITUS WITHOUT COMPLICATIONS Status: Chronic Qualifiers: Diabetes mellitus intermediate insulin use: with intermediate use Chronic kidney disease stage: stage 3 (moderate) (12) CKD (chronic kidney disease) stage 3, GFR 30-59 ml/min Code(s): N18.3 - CHRONIC KIDNEY DISEASE, STAGE 3 (MODERATE) Status: Chronic (13) Essential tremor Code(s): G25.0 - ESSENTIAL TREMOR Status: Chronic (14) Obesity (BMI 30.0-34.9) Code(s): E66.9 - OBESITY, UNSPECIFIED Status: Chronic (15) Parkinson disease Code(s): G20 - PARKINSON'S DISEASE Status: Chronic - Plan old records reviewed/req, plan discussed w/ family, continue antibiotics, PT/OT , social media marketing analyst, respiratory therapy 05/20/19 will try to wean off bipap to see how he does continue vancomycin and zosyn and azithromycin follow culture medication reviewed as above symptomatic treatment home medication reconciled discussed with 05/21/19 transfer to medical floor continue one day antibiotics give dose of lasix expecting discharge soon pulmonary recommendation appreciated discussed with and family 05/22/19 will change to augmentin today medication reviewed as above symptomatic treatment [facility] to [facility]
[2019-05-22] MEDS ORDERED: INSULIN DETEMIR 48 UNIT SQ SCH (21:00)
[2019-05-22] MEDS: Atorvastatin Calcium 10 MG TAB PO SCH (21:23)
[2019-05-22] MEDS: Donepezil HCl 5 MG TAB PO SCH (21:24)
[2019-05-22] MEDS: Insulin Glargine 48 UNITS in Pre-Filled Syringe 1 EACH SC SCH (21:33)
[2019-05-23] MEDS: Azelastine 137 MCG/Spray 30 ML NS SCH ×2 (07:42→21:50)
[2019-05-23] MEDS: Famotidine/PF 20 mg/2ml Vial SLOW IVP SCH ×2 (07:43→20:58)
[2019-05-23] MEDS: Multivitamin W/ Minerals 1 TAB PO SCH (07:43)
[2019-05-23] MEDS: metFORMIN 500 MG TAB PO SCH (07:43)
[2019-05-23] MEDS: rOPINIRole HCl 0.25 MG TAB PO SCH ×3 (07:43→20:58)
[2019-05-23] MEDS: Glimepiride 4 MG TAB PO SCH (07:44)
[2019-05-23] MEDS: Pregabalin 75 MG CAP PO SCH ×2 (07:44→20:59)
[2019-05-23] MEDS: Amoxicillin/Potassium Clav 875 MG TAB PO SCH ×2 (07:44→20:58)
[2019-05-23] MEDS: Saccharomyces boulardii 250 MG CAP PO SCH (07:44)
[2019-05-23] MEDS: Lisinopril 5 MG TAB PO SCH (07:45)
[2019-05-23] MEDS: Senokot S 8.6-50 MG TAB PO SCH ×2 (07:45→20:58)
[2019-05-23] MEDS: Amlodipine 5 MG TAB PO SCH (07:45)
[2019-05-23] MEDS: Carbidopa/Levodopa 25-100 mg Tablet PO SCH ×3 (07:46→21:00)
[2019-05-23] MEDS: TICAGRELOR 90 MG TABLET PO SCH ×2 (07:47→20:57)
[2019-05-23] MEDS: Pioglitazone HCl 15 MG TAB PO SCH (08:00)
--- NOTE | 2019-05-23 11:27 | PDOC.HOSPP ---
- Subjective Encounter Date: 05/23/19 Encounter Time: 10:00 Subjective: Patient seen and examined. No new complaints. No overnight events - Objective Vital Signs & Weight: Vital Signs (12 hours) Temp Pulse Resp BP Pulse Ox 05/23/19 10:21 91 16 97 05/23/19 08:00 97 05/23/19 07:59 97.8 F 91 16 138/71 97 05/23/19 07:45 91 05/23/19 07:08 91 16 95 05/23/19 04:00 99.5 F 90 16 136/76 95 05/23/19 02:21 94 L 05/23/19 00:00 99.4 F 89 16 132/77 92 L Weight Weight 224 lb 9 oz Most Recent Monitor Data Heart Rate from ECG 90 NIBP 143/71 NIBP BP-Mean 95 Respiration from ECG 9 SpO2 98 I&O: 05/22/19 05/23/19 05/24/19 06:59 06:59 06:59 Intake Total 960 Balance 960 Result Diagrams: 05/22/19 06:10 05/22/19 06:10 Additional Labs: Accuchecks 05/23/19 05/22/19 05/22/19 05:15 20:47 17:02 POC Glucose 281 H 250 H 276 H 05/22/19 11:47 POC Glucose 347 H Hospitalist ROS - Review of Systems ROS unobtainable: due to mental status - Medication Medications: Active Medications Generic Name Dose Route Start Last Admin Trade Name Freq PRN Reason Stop Dose Admin Acetaminophen 650 mg 05/20/19 06:41 05/22/19 03:23 Tylenol PO 650 mg Q4H PRN Administration Headache/Fever/Mild Pain (1-3) Albuterol/Ipratropium 3 ml 05/20/19 10:30 05/23/19 10:21 Duoneb NEB 3 ml [id number] ARTURO Administration Amlodipine Besylate 5 mg 05/21/19 09:00 05/23/19 07:45 Norvasc PO 5 mg DAILY ARTURO Administration Amoxicillin/Clavulanate Potassium 875 mg 05/22/19 09:00 05/23/19 07:44 Augmentin PO 875 mg Q12HR ARTURO Administration Atorvastatin Calcium 10 mg 05/20/19 21:00 05/22/19 21:23 Lipitor PO 10 mg HS ARTURO Administration Azelastine HCl 0 ml 05/20/19 21:00 05/23/19 07:42 Azelastine NS 1 spray BID ARTURO Administration Carbidopa/Levodopa 1 tab 05/20/19 15:00 05/23/19 07:46 Sinemet 25-100 PO 1 tab TID ARTURO Administration Donepezil HCl 5 mg 05/20/19 21:00 05/22/19 21:24 Aricept PO 5 mg HS ARTURO Administration Famotidine 20 mg 05/20/19 09:00 05/23/19 07:43 Pepcid SLOW IVP 20 mg Q12HR ARTURO Administration Glimepiride 4 mg 05/23/19 08:00 05/23/19 07:44 Amaryl PO 4 mg QAM-WM ARTURO Administration Insulin Glargine 48 units/ 0.48 mls @ 0 mls/hr 05/22/19 21:00 05/22/19 21:33 Miscellaneous Medication SC 0.48 mls HS ARTURO Administration Insulin Human Regular 0 units 05/20/19 06:36 05/22/19 17:20 Humulin R SC 6 units .MODERATE SLIDING SC PRN Administration Moderate Correctional Scale Insulin Human Regular 0 units 05/20/19 21:36 05/22/19 03:35 Humulin R SC 3 units .BEDTIME SLIDING SC PRN Administration BEDTIME SLIDING SCALE Protocol Iron/Minerals/Multivitamins 1 tab 05/21/19 09:00 05/23/19 07:43 Theragran M PO 1 tab DAILY ARTURO Administration Lisinopril 5 mg 05/21/19 09:00 05/23/19 07:45 Zestril PO 5 mg DAILY ARTURO Administration Memantine 5 mg 05/20/19 21:00 05/22/19 21:25 Namenda PO 5 mg HS ARTURO Administration Metformin HCl 1,000 mg 05/21/19 08:00 05/23/19 07:43 Glucophage PO 1,000 mg QAM-WM ARTURO Administration Mirabegron 50 mg 05/21/19 09:00 05/23/19 07:43 Myrbetriq Er PO 50 mg DAILY ARTURO Administration Pioglitazone HCl 30 mg 05/21/19 09:00 05/23/19 08:00 Actos PO 30 mg DAILY ARTURO Administration Pregabalin 75 mg 05/20/19 21:00 05/23/19 07:44 Lyrica PO 75 mg BID ARTURO Administration Ropinirole HCl 0.25 mg 05/20/19 15:00 05/23/19 07:43 Requip PO 0.25 mg TID ARTURO Administration Saccharomyces Boulardii 250 mg 05/20/19 09:00 05/23/19 07:44 Florastor PO 250 mg DAILY ARTURO Administration Senna/Docusate Sodium 1 tab 05/20/19 09:00 05/23/19 07:45 Senokot S PO 1 tab BID ARTURO Administration Sodium Chloride 10 ml 05/20/19 09:00 05/23/19 07:46 Flush - Normal Saline IVF 10 ml Q12HR ARTURO Administration Ticagrelor 90 mg 05/20/19 09:00 05/23/19 07:47 Brilinta PO Not Given BID ARTURO - Exam General Appearance: NAD, awake alert Eye: PERRL, anicteric sclera ENT: normocephalic atraumatic, no oropharyngeal lesions Neck: supple, symmetric, no JVD, no thyromegaly Heart: RRR, no murmur, no gallops, no rubs Respiratory: CTAB, no wheezes, no rales, no ronchi Gastrointestinal: soft, non-tender, non-distended Extremities: no cyanosis, no clubbing Skin: normal turgor, no lesions Neurological: no focal deficits Hosp A/P (1) Pneumonia Code(s): J18.9 - PNEUMONIA, UNSPECIFIED ORGANISM Status: Acute Qualifiers: Pneumonia type: aspiration pneumonia Laterality: unspecified laterality Lung location: unspecified part of lung (2) Sepsis with acute hypoxic respiratory failure Code(s): A41.9 - SEPSIS, UNSPECIFIED ORGANISM; R65.20 - SEVERE SEPSIS WITHOUT SEPTIC SHOCK; J96.01 - ACUTE RESPIRATORY FAILURE WITH HYPOXIA Status: Resolved Qualifiers: Sepsis type: sepsis due to unspecified organism Severe sepsis shock status : without septic shock Qualified Code(s): A41.9 - Sepsis, unspecified organism ; R65.20 - Severe sepsis without septic shock; J96.01 - Acute respiratory failure with hypoxia (3) CAD (coronary artery disease) Code(s): I25.10 - ATHSCL HEART DISEASE OF [place] CORONARY ARTERY W/O ANG PCTRS Status: Chronic Qualifiers: Coronary Disease-Associated Artery/Lesion type: [place] artery [place] vs. transplanted heart: [place] heart Associated angina: without angina Qualified Code(s): I25.10 - Atherosclerotic heart disease of [place] coronary artery without angina pectoris (4) Hypertension Code(s): I10 - ESSENTIAL (PRIMARY) HYPERTENSION Status: Chronic Qualifiers: Hypertension type: essential hypertension Qualified Code(s): I10 - Essential (primary) hypertension (5) Dyslipidemia Code(s): E78.5 - HYPERLIPIDEMIA, UNSPECIFIED Status: Chronic (6) Thrombocytopenia Code(s): D69.6 - THROMBOCYTOPENIA, UNSPECIFIED Status: Chronic (7) GERD (gastroesophageal reflux disease) Code(s): K21.9 - GASTRO-ESOPHAGEAL REFLUX DISEASE WITHOUT ESOPHAGITIS Status: Chronic Qualifiers: Esophagitis presence: without esophagitis Qualified Code(s): K21.9 - Gastro -esophageal reflux disease without esophagitis (8) Dementia Code(s): F03.90 - UNSPECIFIED DEMENTIA WITHOUT BEHAVIORAL DISTURBANCE Status: Chronic Qualifiers: Dementia type: Parkinson's disease Dementia behavioral disturbance: without behavioral disturbance Qualified Code(s): G20 - Parkinson's disease; F02.80 - Dementia in other diseases classified elsewhere without behavioral disturbance (9) Physical deconditioning Code(s): R53.81 - OTHER MALAISE Status: Chronic (10) Lactic acidosis Code(s): E87.2 - ACIDOSIS Status: Resolved (11) Diabetes type 2, controlled Code(s): E11.9 - TYPE 2 DIABETES MELLITUS WITHOUT COMPLICATIONS Status: Chronic Qualifiers: Diabetes 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: with prison use Chronic kidney disease stage: stage 3 (moderate) (12) CKD (chronic kidney disease) stage 3, GFR 30-59 ml/min Code(s): N18.3 - CHRONIC KIDNEY DISEASE, STAGE 3 (MODERATE) Status: Chronic (13) Essential tremor Code(s): G25.0 - ESSENTIAL TREMOR Status: Chronic (14) Obesity (BMI 30.0-34.9) Code(s): E66.9 - OBESITY, UNSPECIFIED Status: Chronic (15) Parkinson disease Code(s): G20 - PARKINSON'S DISEASE Status: Chronic - Plan old records reviewed/req, plan discussed w/ family, continue antibiotics, PT/OT , 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/19 will try to wean off bipap to see how he does continue vancomycin and zosyn and azithromycin follow culture medication reviewed as above symptomatic treatment home medication reconciled discussed with 05/21/19 transfer to medical floor continue one day antibiotics give dose of lasix expecting discharge soon pulmonary recommendation appreciated discussed with and family 05/22/19 will change to augmentin today medication reviewed as above symptomatic treatment family wants him to go to [facility] 05/23/19 diabetes control continue augmentin [facility] placement in progress Medication reviewed as above, symptomatic treatment
[2019-05-23] MEDS: Insulin Regular 300 UNITS/3 ML VIAL SC PRN (16:33)
[2019-05-23] MEDS: Atorvastatin Calcium 10 MG TAB PO SCH (20:58)
[2019-05-23] MEDS: Insulin Glargine 48 UNITS in Pre-Filled Syringe 1 EACH SC SCH (21:00)
[2019-05-23] MEDS: Donepezil HCl 5 MG TAB PO SCH (21:50)
[2019-05-24] MEDS: Insulin Regular 300 UNITS/3 ML VIAL SC PRN ×2 (05:35→11:35)
[2019-05-24] MEDS: Lisinopril 5 MG TAB PO SCH (07:52)
[2019-05-24] MEDS: Famotidine/PF 20 mg/2ml Vial SLOW IVP SCH ×2 (07:53→20:18)
[2019-05-24] MEDS: rOPINIRole HCl 0.25 MG TAB PO SCH ×3 (07:53→20:17)
[2019-05-24] MEDS: metFORMIN 500 MG TAB PO SCH (07:53)
[2019-05-24] MEDS: Multivitamin W/ Minerals 1 TAB PO SCH (07:54)
[2019-05-24] MEDS: Amoxicillin/Potassium Clav 875 MG TAB PO SCH ×2 (07:54→20:16)
[2019-05-24] MEDS: Amlodipine 5 MG TAB PO SCH (07:54)
[2019-05-24] MEDS: Pioglitazone HCl 15 MG TAB PO SCH (07:54)
[2019-05-24] MEDS: Glimepiride 4 MG TAB PO SCH (07:54)
[2019-05-24] MEDS: Pregabalin 75 MG CAP PO SCH ×2 (07:55→20:17)
[2019-05-24] MEDS: Senokot S 8.6-50 MG TAB PO SCH ×2 (07:55→20:17)
[2019-05-24] MEDS: Saccharomyces boulardii 250 MG CAP PO SCH (07:56)
[2019-05-24] MEDS: Carbidopa/Levodopa 25-100 mg Tablet PO SCH ×3 (07:57→20:16)
[2019-05-24] MEDS: Azelastine 137 MCG/Spray 30 ML NS SCH ×2 (08:08→20:19)
[2019-05-24] MEDS: TICAGRELOR 90 MG TABLET PO SCH ×2 (08:09→22:51)
--- NOTE | 2019-05-24 12:04 | PDOC.HOSPP ---
- Subjective Encounter Date: 05/24/19 Encounter Time: 10:30 Subjective: Patient seen and examined. No new complaints. No overnight events - Objective Vital Signs & Weight: Vital Signs (12 hours) Temp Pulse Resp BP Pulse Ox 05/24/19 09:54 83 14 93 L 05/24/19 08:00 93 L 05/24/19 07:55 97.7 F 83 18 161/85 H 93 L 05/24/19 07:54 80 05/24/19 07:52 80 05/24/19 06:34 80 94 L Weight Weight 224 lb 7 oz Most Recent Monitor Data Heart Rate from ECG 90 NIBP 143/71 NIBP BP-Mean 95 Respiration from ECG 9 SpO2 98 I&O: 05/23/19 05/24/19 05/25/19 06:59 06:59 06:59 Intake Total 960 240 360 Balance 960 240 360 Result Diagrams: 05/22/19 06:10 05/22/19 06:10 Additional Labs: Accuchecks 05/24/19 05/24/19 05/23/19 11:34 05:08 19:52 POC Glucose 210 H 237 H 268 H 05/23/19 16:33 POC Glucose 282 H Hospitalist ROS - Review of Systems ROS unobtainable: due to mental status - Medication Medications: Active Medications Generic Name Dose Route Start Last Admin Trade Name Freq PRN Reason Stop Dose Admin Acetaminophen 650 mg 05/20/19 06:41 05/22/19 03:23 Tylenol PO 650 mg Q4H PRN Administration Headache/Fever/Mild Pain (1-3) Amlodipine Besylate 5 mg 05/21/19 09:00 05/24/19 07:54 Norvasc PO 5 mg DAILY ARTURO Administration Amoxicillin/Clavulanate Potassium 875 mg 05/22/19 09:00 05/24/19 07:54 Augmentin PO 875 mg Q12HR ARTURO Administration Atorvastatin Calcium 10 mg 05/20/19 21:00 05/23/19 20:58 Lipitor PO 10 mg HS ARTURO Administration Azelastine HCl 0 ml 05/20/19 21:00 05/24/19 08:08 Azelastine NS 1 spray BID ARTURO Administration Carbidopa/Levodopa 1 tab 05/20/19 15:00 05/24/19 07:57 Sinemet 25-100 PO 1 tab TID ARTURO Administration Donepezil HCl 5 mg 05/20/19 21:00 05/23/19 21:50 Aricept PO 5 mg HS ARTURO Administration Famotidine 20 mg 05/20/19 09:00 05/24/19 07:53 Pepcid SLOW IVP 20 mg Q12HR ARTURO Administration Glimepiride 4 mg 05/23/19 08:00 05/24/19 07:54 Amaryl PO 4 mg QAM-WM ARTURO Administration Insulin Glargine 48 units/ 0.48 mls @ 0 mls/hr 05/22/19 21:00 05/23/19 21:00 Miscellaneous Medication SC 0.48 mls HS ARTURO Administration Insulin Human Regular 0 units 05/20/19 06:36 05/24/19 11:35 Humulin R SC 4 units .MODERATE SLIDING SC PRN Administration Moderate Correctional Scale Insulin Human Regular 0 units 05/20/19 21:36 05/24/19 05:35 Humulin R SC 2 units .BEDTIME SLIDING SC PRN Administration BEDTIME SLIDING SCALE Protocol Iron/Minerals/Multivitamins 1 tab 05/21/19 09:00 05/24/19 07:54 Theragran M PO 1 tab DAILY ARTURO Administration Lisinopril 5 mg 05/21/19 09:00 05/24/19 07:52 Zestril PO 5 mg DAILY ARTURO Administration Memantine 5 mg 05/20/19 21:00 05/23/19 20:58 Namenda PO 5 mg HS ARTURO Administration Metformin HCl 1,000 mg 05/21/19 08:00 05/24/19 07:53 Glucophage PO 1,000 mg QAM-WM ARTURO Administration Mirabegron 50 mg 05/21/19 09:00 05/24/19 07:54 Myrbetriq Er PO 50 mg DAILY ARTURO Administration Pioglitazone HCl 30 mg 05/21/19 09:00 05/24/19 07:54 Actos PO 30 mg DAILY ARTURO Administration Pregabalin 75 mg 05/20/19 21:00 05/24/19 07:55 Lyrica PO 75 mg BID ARTURO Administration Ropinirole HCl 0.25 mg 05/20/19 15:00 05/24/19 07:53 Requip PO 0.25 mg TID ARTURO Administration Saccharomyces Boulardii 250 mg 05/20/19 09:00 05/24/19 07:56 Florastor PO 250 mg DAILY ARTURO Administration Senna/Docusate Sodium 1 tab 05/20/19 09:00 05/24/19 07:55 Senokot S PO 1 tab BID ARTURO Administration Sodium Chloride 10 ml 05/20/19 09:00 05/24/19 08:10 Flush - Normal Saline IVF 10 ml Q12HR ARTURO Administration Ticagrelor 90 mg 05/20/19 09:00 05/24/19 08:09 Brilinta PO Not Given BID ARTURO - Exam General Appearance: NAD, awake alert Eye: PERRL, anicteric sclera ENT: normocephalic atraumatic, no oropharyngeal lesions Neck: supple, symmetric, no JVD, no thyromegaly Heart: RRR, no murmur, no gallops, no rubs Respiratory: CTAB, no wheezes, no rales, no ronchi Gastrointestinal: soft, non-tender, non-distended, normal bowel sounds Extremities: no cyanosis, no clubbing, no edema Skin: normal turgor, no lesions Neurological: cranial nerve grossly intact, no focal deficits Hosp A/P (1) Pneumonia Code(s): J18.9 - PNEUMONIA, UNSPECIFIED ORGANISM Status: Acute Qualifiers: Pneumonia type: aspiration pneumonia Laterality: unspecified laterality Lung location: unspecified part of lung (2) Sepsis with acute hypoxic respiratory failure Code(s): A41.9 - SEPSIS, UNSPECIFIED ORGANISM; R65.20 - SEVERE SEPSIS WITHOUT SEPTIC SHOCK; J96.01 - ACUTE RESPIRATORY FAILURE WITH HYPOXIA Status: Resolved Qualifiers: Sepsis type: sepsis due to unspecified organism Severe sepsis shock status : without septic shock Qualified Code(s): A41.9 - Sepsis, unspecified organism ; R65.20 - Severe sepsis without septic shock; J96.01 - Acute respiratory failure with hypoxia (3) CAD (coronary artery disease) Code(s): I25.10 - ATHSCL HEART DISEASE OF [place] CORONARY ARTERY W/O ANG PCTRS Status: Chronic Qualifiers: Coronary Disease-Associated Artery/Lesion type: [place] artery [place] vs. transplanted heart: [place] heart Associated angina: without angina Qualified Code(s): I25.10 - Atherosclerotic heart disease of [place] coronary artery without angina pectoris (4) Hypertension Code(s): I10 - ESSENTIAL (PRIMARY) HYPERTENSION Status: Chronic Qualifiers: Hypertension type: essential hypertension Qualified Code(s): I10 - Essential (primary) hypertension (5) Dyslipidemia Code(s): E78.5 - HYPERLIPIDEMIA, UNSPECIFIED Status: Chronic (6) Thrombocytopenia Code(s): D69.6 - THROMBOCYTOPENIA, UNSPECIFIED Status: Chronic (7) GERD (gastroesophageal reflux disease) Code(s): K21.9 - GASTRO-ESOPHAGEAL REFLUX DISEASE WITHOUT ESOPHAGITIS Status: Chronic Qualifiers: Esophagitis presence: without esophagitis Qualified Code(s): K21.9 - Gastro -esophageal reflux disease without esophagitis (8) Dementia Code(s): F03.90 - UNSPECIFIED DEMENTIA WITHOUT BEHAVIORAL DISTURBANCE Status: Chronic Qualifiers: Dementia type: Parkinson's disease Dementia behavioral disturbance: without behavioral disturbance Qualified Code(s): G20 - Parkinson's disease; F02.80 - Dementia in other diseases classified elsewhere without behavioral disturbance (9) Physical deconditioning Code(s): R53.81 - OTHER MALAISE Status: Chronic (10) Lactic acidosis Code(s): E87.2 - ACIDOSIS Status: Resolved (11) Diabetes type 2, controlled Code(s): E11.9 - TYPE 2 DIABETES MELLITUS WITHOUT COMPLICATIONS Status: Chronic Qualifiers: Diabetes mellitus long-term insulin use: with infrastructure tech use Chronic kidney disease stage: stage 3 (moderate) (12) CKD (chronic kidney disease) stage 3, GFR 30-59 ml/min Code(s): N18.3 - CHRONIC KIDNEY DISEASE, STAGE 3 (MODERATE) Status: Chronic (13) Essential tremor Code(s): G25.0 - ESSENTIAL TREMOR Status: Chronic (14) Obesity (BMI 30.0-34.9) Code(s): E66.9 - OBESITY, UNSPECIFIED Status: Chronic (15) Parkinson disease Code(s): G20 - PARKINSON'S DISEASE Status: Chronic - Plan old records reviewed/req, plan discussed w/ family, continue antibiotics, PT/OT , 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 will try to wean off bipap to see how he does continue vancomycin and zosyn and azithromycin follow culture medication reviewed as above symptomatic treatment home medication reconciled discussed with 05/21/19 transfer to medical floor continue one day antibiotics give dose of lasix expecting discharge soon pulmonary recommendation appreciated discussed with and family 05/22/19 will change to augmentin today medication reviewed as above symptomatic treatment family wants him to go to [facility] 05/23/19 diabetes control continue augmentin snu placement in progress Medication reviewed as above, symptomatic treatment 05/24/19 will dc to [facility] when insurance approves medication reviewed as above symptomatic treatment
[2019-05-24] MEDS: Atorvastatin Calcium 10 MG TAB PO SCH (20:16)
[2019-05-24] MEDS: Donepezil HCl 5 MG TAB PO SCH (20:17)
[2019-05-24] MEDS: Insulin Glargine 48 UNITS in Pre-Filled Syringe 1 EACH SC SCH (20:21)
[2019-05-24 20:45] VITALS: TEMP 98
[2019-05-25] MEDS: Pioglitazone HCl 15 MG TAB PO SCH (08:19)
[2019-05-25] MEDS: Lisinopril 5 MG TAB PO SCH (08:25)
[2019-05-25] MEDS: Saccharomyces boulardii 250 MG CAP PO SCH (08:25)
[2019-05-25] MEDS: Amoxicillin/Potassium Clav 875 MG TAB PO SCH (08:25)
[2019-05-25] MEDS: Amlodipine 5 MG TAB PO SCH (08:26)
[2019-05-25] MEDS: metFORMIN 500 MG TAB PO SCH (08:26)
[2019-05-25] MEDS: Pregabalin 75 MG CAP PO SCH (08:27)
[2019-05-25] MEDS: Glimepiride 4 MG TAB PO SCH (08:27)
[2019-05-25] MEDS: Famotidine/PF 20 mg/2ml Vial SLOW IVP SCH (08:28)
[2019-05-25] MEDS: Multivitamin W/ Minerals 1 TAB PO SCH (08:28)
[2019-05-25] MEDS: Senokot S 8.6-50 MG TAB PO SCH (08:28)
[2019-05-25] MEDS: TICAGRELOR 90 MG TABLET PO SCH (08:28)
[2019-05-25] MEDS: rOPINIRole HCl 0.25 MG TAB PO SCH ×2 (08:31→15:44)
[2019-05-25] MEDS: Carbidopa/Levodopa 25-100 mg Tablet PO SCH ×2 (08:31→15:44)
[2019-05-25] MEDS: Azelastine 137 MCG/Spray 30 ML NS SCH (08:32)
[2019-05-25 08:33] VITALS: BP 150/95
[2019-05-25] MEDS: Insulin Regular 300 UNITS/3 ML VIAL SC PRN (12:52)
--- NOTE | 2019-05-25 15:09 | DIS ---
DATE OF ADMISSION: 05/20/2019 DATE OF DISCHARGE: 05/25/2019 PRIMARY CARE PROVIDER: Dr. Makenna Sylvester. DISPOSITION: Discharged to [facility]. FINAL DIAGNOSES: Pneumonia, acute respiratory failure with hypoxemia, sepsis, coronary artery disease, hypertension, dyslipidemia, gastroesophageal reflux disease, lactic acidosis, diabetes mellitus type 2, chronic kidney disease stage 3, and Parkinson disease. DISCHARGE MEDICATIONS: 1. Vascepa 2 g b.i.d. 2. Ropinirole 0.25 mg p.o. t.i.d. 3. Pravastatin 40 mg a day. 4. Pioglitazone 30 mg a day. 5. Myrbetriq 50 mg a day. 6. Metformin 1000 mg in the morning. 7. Memantine 5 mg at bedtime. 8. Lyrica 75 mg p.o. b.i.d. 9. Levemir 48 units subcu in the evening. 10. Amaryl 4 mg p.o. q.a.m. 11. Nexium 24 hours 40 mg a day. 12. Enalapril 5 mg a day. 13. Aricept 5 mg at bedtime. 14. Brilinta 90 mg p.o. b.i.d. 15. Sinemet 25/100 one p.o. t.i.d. 16. Amlodipine 5 mg a day. 17. Augmentin 875 p.o. q.12 hours for 7 more days. ALLERGIES: 1. CEPHALEXIN. 2. CODEINE. 3. SULFA. CODE STATUS: DNAR status. DIET: Diabetic diet. HOSPITAL COURSE: The patient was admitted to the Hospitalist Service through the emergency room with cough and fever. Chest x-ray revealed increased markings in the left base. Sodium 136, potassium 4.1, BUN 15, creatinine 1.29. Lactic acid was 3.5. Influenza screen was negative. The patient was placed in the IMCU and put on positive-pressure noninvasive ventilation. Started on vancomycin and Zosyn. Pulmonary was consulted, Dr. Santiago. On 05/21, he was monitored with Accu-Cheks, sliding scale, continued on IV antibiotics. He was eventually transitioned to amoxicillin/clavulanic acid 875 p.o. q.12 hours. No procedures were done. He improved during his hospital stay and is being transferred to intermediate facility for completion of therapy PT/OT. At time of discharge, vital signs were stable. He was 96% saturating on room air. Chest showed only some scattered rhonchi. No focal findings. Blood cultures revealed a coagulase-negative Staph in 1/2 blood cultures, considered a contaminant. At time of discharge, his white count had dropped from 12.4 on admission on 05/22, and dropped to 7.8. His blood sugars remained in the 200 +/- region. Renal function was stable at chronic kidney disease stage 3. He will be followed at the [facility]. He will need follow up with his PCP post discharge from the [place]. Job ID: [id number]
== END 2019-05-25 16:02 | DRG 871 ==
LOC: ERS 01:57 → IMCU/EMU 05:52 → T4-B 05-21 16:24
PROVIDERS: ADMIT Internal Medicine; ATTEND Internal Medicine
PROC: 5A09357 Assistance with Respiratory Ventilation, Less than 24 Consecutive Hours, Continuous Positive Airway Pressure (ICD-10-PCS; principal; 2019-05-20)
DX: A41.9 Sepsis, unspecified organism (principal); J96.01 Acute respiratory failure with hypoxia; J69.0 Pneumonitis due to inhalation of food and vomit; E87.2 Acidosis; Z66 Do not resuscitate; R65.20 Severe sepsis without septic shock; G20 Parkinson's disease; F02.80 Dementia in other diseases classified elsewhere, unspecified severity, without behavioral disturbance, psychotic disturbance, mood disturbance, and anxiety; Z96.652 Presence of left artificial knee joint; D69.6 Thrombocytopenia, unspecified; K21.9 Gastro-esophageal reflux disease without esophagitis; M19.90 Unspecified osteoarthritis, unspecified site; G25.0 Essential tremor; E11.22 Type 2 diabetes mellitus with diabetic chronic kidney disease; N18.3 Chronic kidney disease, stage 3 (moderate); I25.10 Atherosclerotic heart disease of native coronary artery without angina pectoris; I12.9 Hypertensive chronic kidney disease with stage 1 through stage 4 chronic kidney disease, or unspecified chronic kidney disease; E66.9 Obesity, unspecified; Z95.5 Presence of coronary angioplasty implant and graft; Z88.1 Allergy status to other antibiotic agents; Z88.5 Allergy status to narcotic agent; Z88.2 Allergy status to sulfonamides; Z79.84 Long term (current) use of oral hypoglycemic drugs; Z79.02 Long term (current) use of antithrombotics/antiplatelets; Z79.899 Other long term (current) drug therapy; Z85.828 Personal history of other malignant neoplasm of skin; Z98.49 Cataract extraction status, unspecified eye; Z68.31 Body mass index [BMI] 31.0-31.9, adult
CPT/HCPCS: 36415; 36416; 51701; 71045; 80053; 80202; 81003; 81015; 82533; 82805; 83605; 83735; 83880; 84484; 85025; 87040; 87149; 87804; 93005; 94640; 94660; 96365; 96368; 96375; J0456; J1815; J1940; J2543; J3370; J3490; J7050; J7620; S0028

== ENCOUNTER 2019-06-14 10:02 | Emergency (ER) | payer MEDICARE ==
--- NOTE | 2019-06-14 10:36 | RAD ---
XR Chest 1 View Portable History: Altered mental status Comparison: Radiograph May 21, 2019 Findings: Heart size is enlarged. No pneumothorax. No effusion. No acute osseous abnormality. Bilateral rotator cuff arthropathy. Impression: Cardiomegaly otherwise no acute intrathoracic abnormality.
[2019-06-14 10:57] LABS: Bacteria/HPF None Seen HPF (None Seen); Bilirubin Negative (Negative); Blood, Urine Trace (Negative); Clarity Clear (Clear); Glucose, Urine (Dipstick) Normal (Negative); Leukocyte Negative Leu/uL (Negative); Nitrite Negative (Negative); Protein, Urine (Dipstick) Negative (Neg-Trace); RBC/HPF 0-3 HPF (0-3); Squamous Epithelial None Seen HPF (0-3); Urobilinogen Normal mg/dL (Less than 2); WBC/HPF None Seen HPF (0-3)
[2019-06-14 11:13] LABS: Hemoglobin 14.8 g/dL (14.0-18.0); Mean Corpuscular HGB CONC 34.3 g/dL (32.0-36.0); Mean Corpuscular Hemoglobin 31.1 pg (27.0-31.0); Mean Corpuscular Volume 90.7 fL (78.0-98.0); Platelet Count 96 thou/uL (130-400); RBC Distribution Width 14.5 % (11.5-14.5); Red Blood Cell (RBC) Count 4.76 mill/uL (4.70-6.10)
[2019-06-14 11:32] LABS: ALT (SGPT) 21 U/L (8-55); AST (SGOT) 18 U/L (5-34); Albumin 4.6 g/dL (3.4-4.8); Alkaline Phosphatase 80 U/L (40-110); Anion Gap 12 mmol/L (10-20); BUN (Urea Nitrogen) 20 mg/dL (8.4-25.7); Bilirubin, Total 0.7 mg/dL (0.2-1.2); Calc. Creatinine Clearance 0 mL/min (70-130); Calcium 9.9 mg/dL (7.8-10.44); Carbon Dioxide 26 mmol/L (23-31); Chloride 100 mmol/L (98-107); Estimated GFR-MDRD 60; Globulin 2.5 g/dL (2.4-3.5); Glucose 177 mg/dL (83-110); Potassium 4.3 mmol/L (3.5-5.1); Protein, Total 7.1 g/dL (5.8-8.1); Sodium 134 mmol/L (136-145)
[2019-06-14 11:48] LABS: Band 3 % (5-11); Lymphocytes 25 % (21-51); MDiff Complete? YES; Monocytes 25 % (0-10); Neutrophil 47 % (42-75); Platelet Morphology Comment Appears Decreased; RBC Morphology Normal
== END 2019-06-14 11:45 | disposition home or self-care (01) ==
LOC: ERS 10:02
DX: N48.1 Balanitis (principal); G20 Parkinson's disease; F02.80 Dementia in other diseases classified elsewhere, unspecified severity, without behavioral disturbance, psychotic disturbance, mood disturbance, and anxiety; Z79.899 Other long term (current) drug therapy; Z95.5 Presence of coronary angioplasty implant and graft
CPT/HCPCS: 51701; 71045; 80053; 81003; 81015; 85025; 85060; 93005; 96360